=== PATIENT | female | born 1990 | race Caucasian/White ===

== ENCOUNTER 2024-04-14 05:30 | Emergency (ER) | payer OTHER ==
[~2024-04-14] VITALS: Ht 160 cm; Wt 65.8 kg
[2024-04-14 05:40] VITALS: BP_SYST 149; RESP 19; TEMP 97; O2SAT 99
[2024-04-14] MEDS: ONDANSETRON HCL 4 MG/2 ML VIAL IVP ONE (05:58)
[2024-04-14] MEDS: NACL 0.9% 1,000 ML IV ONE (05:58)
[2024-04-14] MEDS: KETOROLAC TROMETHAMINE 30 MG VIAL IVP ONE (06:15)
[2024-04-14 06:17] LABS: BASOPHILS % (AUTO) 0.4 % (0.0-2.0); EOSINOPHILS # (AUTO) 0.1 K/uL (0.0-0.4); EOSINOPHILS % (AUTO) 0.9 % (0.0-4.0); HEMATOCRIT 40.7 % (36-48); HEMOGLOBIN 14.1 g/dL (12.0-16.0); LYMPHOCYTES # (AUTO) 2.2 K/uL (1.0-5.5); LYMPHOCYTES % (AUTO) 21.2 % (20.5-51.5); MEAN CORPUSCULAR HEMOGLOBIN 31 pg (27-31); MEAN CORPUSCULAR HGB CONC 35 % (32-36); MEAN CORPUSCULAR VOLUME 89 fL (79.0-98.0); MONOCYTES # (AUTO) 0.7 K/uL (0.0-1.0); MONOCYTES % (AUTO) 6.3 % (1.7-9.3); NEUTROPHILS # (AUTO) 7.4 K/uL (1.8-7.7); NEUTROPHILS % (AUTO) 71.2 % (40.0-70.0); PLATELET COUNT (AUTO) 258 K/uL (130-430); RED BLOOD CELL COUNT(AUTO) 4.56 MIL/uL (4.2-6.2); RED CELL DISTRIBUTION WIDTH 12.5 % (9.0-15.0); WHITE BLOOD COUNT (AUTO) 10.4 K/uL (4.8-10.8)
[2024-04-14 06:19] LABS: BILIRUBIN,URINE NEGATIVE (NEGATIVE); BLOOD, URINE 3+ (NEGATIVE); CLARITY/URINE SL CLOUDY (CLEAR); COLOR,URINE YELLOW (YELLOW); GLUCOSE,URINE NEGATIVE (NEGATIVE); KETONES,URINE NEGATIVE (NEGATIVE); LEUKOCYTE ESTERASE ,URINE NEGATIVE (NEGATIVE); NITRITE, URINE NEGATIVE (NEGATIVE); PROTEIN URINE NEGATIVE (NEGATIVE); UROBILINOGEN,URINE 0.2 (0.2-1.0)
[2024-04-14] MEDS ORDERED: IBUP-1969 PO (06:34)
[2024-04-14] MEDS ORDERED: ONDA8TAB60 PO (06:34)
[2024-04-14] MEDS ORDERED: HYDR-3917 PO (06:34)
[2024-04-14] MEDS ORDERED: TAMS-11 PO (06:34)
[2024-04-14 06:39] LABS: CALCIUM 8.9 mg/dL (8.4-11.0); CREATININE 0.97 mg/dL (0.55-1.30); POTASSIUM 3.5 mmol/L (3.5-5.1)
[2024-04-14 06:40] LABS: BACTERIA,URINE MODERATE /HPF (None Seen); RBC,URINE 20-50 /HPF (0-3); WBC,URINE 0-3 /HPF (0-3)
[2024-04-14 07:00] VITALS: BP_SYST 149; RESP 19; TEMP 97; O2SAT 99
== END 2024-04-14 07:00 | disposition home or self-care (01) ==
LOC: SED 05:30
DX: R10.9 Unspecified abdominal pain (principal); R11.2 Nausea with vomiting, unspecified
CPT/HCPCS: 99284; 96374; 96361; 96375; 80048; 81001; 85025; 87086; 36415; 81025; 81000; 81015; J1885; J2405; J7030